=== PATIENT | male | born 1930 | race Caucasian/White ===

== ENCOUNTER 2016-10-19 11:33 | Emergency (ER) | payer OTHER, MEDICARE ==
[~2016-10-19] VITALS: Ht 182.9 cm
[~2016-10-19 11:33] MED LIST: ADULT TUSS100 MG/51 PO; ALBUTEROL SULF8.5 G2 INH; ALBUTEROL1.25 MG/3 INH; ASPIR 8181 M1 PO; AUGMENTIN 875-1 EAC2 PO; AZITHROMYCIN250 M1 PO; BACITRACIN1 G1 TOP; CITALOPRAM HBR20 MG PO; CLARITIN10 M2 PO; COLESTIPOL HCL1 GM PO; COMBIVENT1 PUFF INH; DEEP SEA45 ML NS; DEPAKOTE500 M1 PO; DIVALPROEX SOD250 M2 PO; DULERA 200 MCG/13 G1 INH; FLONASE ALLERG9.9 ML; FLOVENT DISKUS50 MCG IH; FLUNISOLIDE25 ML NS; GUAIFENESIN400 M1 PO; GUAIFENESIN400 MG PO; HYTRIN1 MG PO; LEVAQUIN750 M1 PO; LIDODERM700 MG APL; MELOXICAM15 M1 PO; METOPROLOL TART25 M1 PO; METOPROLOL TART50 M2 PO; METOPROLOL TART50 MG PO; MONTELUKAST SOD10 M2 PO; NEURONTIN300 M1 PO; OCCUVITE PO; OMEPRAZOLE20 M4 PO; PLAVIX75 M1 PO; PREDNISONE10 M1; PREDNISONE10 M2; PROAIR HFA8.5 GM IH; SIMVASTATIN80 MG PO; SPIRIVA18 MC1 INH; SYMBICORT 80-41 PUFF INH; TERAZOSIN HCL2 M1 PO; TRIAMCINOLONE A15 G4; ZOLOFT50 M1 PO
[2016-10-19] MEDS ORDERED: OFLOXACIN5 M3 RIGHT EAR (14:39)
== END 2016-10-19 14:44 ==
LOC: EDMED 11:33
DX: S09.21XA Traumatic rupture of right ear drum, initial encounter (principal); I25.2 Old myocardial infarction; I10 Essential (primary) hypertension; E78.5 Hyperlipidemia, unspecified; X58.XXXA Exposure to other specified factors, initial encounter